=== PATIENT | male | born 1945 | race Caucasian/White ===

== ENCOUNTER → 2016-09-12 | Outpatient (CLI) | payer OTHER ==
--- NOTE | 2016-09-12 16:08 | DX ---
SACRUM AND COCCYX, 3 views HISTORY: Fall on ice, pain, S39.90 2XA COMPARISON: None FINDINGS: No sacral fracture or malalignment is identified. There is degenerative disk disease at the L5-S1 level. The SI joints are normally aligned. There is no unusual lucency of uncertain clinical s ignificance coursing through the right acetabular region. Impression:1. Negative sacrum 2. Lucency coursing through the medial right acetabulum of uncertain significance, since the patient is walking without difficulty. Results discussed with Dr. Waldrop at 4:07 PM
== END ==
LOC: BMCIMAGING 15:15
PROVIDERS: ATTEND Family Medicine
DX: S39.92XA Unspecified injury of lower back, initial encounter (principal); W00.0XXA Fall on same level due to ice and snow, initial encounter

== ENCOUNTER → 2018-10-02 | Outpatient (CLI) | payer OTHER | LOC: BHFA 13:30 | PROVIDERS: ATTEND Internal Medicine Cardiovascular Disease | DX: I25.10 Atherosclerotic heart disease of native coronary artery without angina pectoris (principal); I10 Essential (primary) hypertension ==

== ENCOUNTER → 2018-11-08 | Outpatient (CLI) | payer OTHER | LOC: FIMAGING 09:41 | PROVIDERS: ATTEND Family Medicine | DX: N13.30 Unspecified hydronephrosis (principal); N32.9 Bladder disorder, unspecified ==

== ENCOUNTER 2018-11-25 23:18 | Emergency (ER) | payer OTHER ==
--- NOTE | 2018-11-26 00:04 | EDPHY ---
H & P Stated Complaint: recent TURP now rectal pain, denies urinary complaints Time Seen by Provider: 11/25/18 23:47 HPI/ROS: Chief Complaint: Pelvis/rectal pain HPI: 73-year-old male who is 5 days status post TURP by Dr. Schroeder. Patient had his catheter removed today. Patient states that with voiding he is having pain in his rectum. Occurs only when he is voiding and trying to push headaches urine. Pain can be severe. Started at 5:00 a.m. This evening. Pain then goes away when he is no longer trying to push. He spoke with his urology team and they instructed him to come in for further evaluation. Also does have a history of diverticulitis. He is able to void is not sure if he is emptying his bladder. Continuing to have hematuria as expected. No fevers or chills. No nausea or vomiting. Last normal bowel movement was yesterday. He did have passed some stool tonight. ROS: 10 systems were reviewed and were negative except those elements noted in the HPI. PMH: BPH, renal insufficiency Social History: No smoking, no alcohol, no recreational drug use Family History: non-contributory Physical Exam: Gen: Awake, Alert, No Distress HEENT: Nose: no rhinorrhea Eyes: PERRLA, EOMI Mouth: Moist mucosa Neck: Supple, no JVD Chest: nontender, lungs clear to auscultation Heart: S1, S2 normal, no murmur Abd: Soft, non-tender, no guarding Back: no CVA tenderness, no midline tenderness Ext: no edema, non-tender Skin: no rash Neuro: CN II-XII intact, Sensation grossly intact, Strength 5/5 in bilateral upper and lower extremities - Personal History Current Tetanus/Diphtheria Vaccine: Yes Current Tetanus Diphtheria and Acellular Pertussis (TDAP): Yes - Medical/Surgical History Hx Asthma: No Hx Chronic Respiratory Disease: No Hx Diabetes: No Hx Cardiac Disease: No Hx Renal Disease: No Hx Cirrhosis: No Hx Alcoholism: No Hx HIV/AIDS: No Hx Splenectomy or Spleen Trauma: No Other PMH: TURP, Dperession, kidney stones - Social History Smoking Status: Never smoked Constitutional: Initial Vital Signs Temperature (C) 37.4 C 11/25/18 23:23 Heart Rate 82 11/25/18 23:23 Respiratory Rate 16 11/25/18 23:23 Blood Pressure 138/80 H 11/25/18 23:23 O2 Sat (%) 95 11/25/18 23:23 O2 Delivery Mode Room Air Allergies/Adverse Reactions: Iodinated Contrast- Oral and IV Dye Allergy (Verified 11/25/18 23:22) Home Medications: Medication Instructions Recorded Bupropion HCl [Wellbutrin Xl] 11/25/18 Hydrocodone-Acetamin 5-325 mg 11/25/18 Lorazepam 2 mg PO 11/25/18 Medical Decision Making - Diagnostics Imaging Results: CT abdomen and pelvis without contrast: Comparison: None Findings: No significant abnormality in the lung bases. Normal gallbladder. No biliary ductal dilatation. No aortic aneurysm. Moderate right-sided hydronephrosis and hydroureter of uncertain etiology. The distal ureter is normal caliber. It is difficult to differentiate the inferior bladder from the remaining prostate gland with asymmetric nodularity in what may be the remaining prostate gland on the right. There is ill-defined soft tissue density and/or fluid in the presacral and perirectal soft tissues. Mildly distended urinary bladder with surrounding fat stranding and small amount of air in the bladder. The appendix is not identified. No bowel obstruction or free air. The solid organs are otherwise unremarkable within the limits of a noncontrast study. Impression: Indeterminate fluid and fat stranding in the presacral and perirectal soft tissues which could be ill-defined hematoma and/or edema. Nodularity and irregularity of the prostate gland and bladder base may be benign related to recent surgery. Moderate right-sided hydronephrosis and hydroureter. There is no obstructing calculus identified. This is of uncertain etiology. ELECTRONICALLY SIGNED BY: Jad Verduzco MD Nov 26, 2018 1:14:44 AM MDT ED Course/Re-evaluation: CT scan results noted. Patient has a postvoid residual 680 mL. I have discussed with Dr. Doe, urology. He is recommending replacing a Cortez catheter. Patient to follow up with Dr. Slade tomorrow. - Data Points Laboratory Results: Laboratory Results 11/26/18 00:14 11/26/18 00:14 11/26/18 11/26/18 00:14 00:14 WBC 9.79 10^3/uL H 10^3/uL (3.80-9.50) RBC 3.68 10^6/uL L 10^6/uL (4.40-6.38) Hgb 12.2 g/dL L g/dL (13.7-17.5) Hct 35.0 % L % (40.0-51.0) MCV 95.1 fL fL (81.5-99.8) MCH 33.2 pg pg (27.9-34.1) MCHC 34.9 g/dL g/dL (32.4-36.7) RDW 13.2 % % (11.5-15.2) Plt Count 235 10^3/uL 10^3/uL (150-400) MPV 9.5 fL fL (8.7-11.7) Neut % (Auto) 73.9 % % (39.3-74.2) Lymph % (Auto) 16.5 % % (15.0-45.0) [place] % (Auto) 7.8 % % (4.5-13.0) Eos % (Auto) 1.1 % % (0.6-7.6) Baso % (Auto) 0.3 % % (0.3-1.7) Nucleat RBC Rel Count 0.0 % % (0.0-0.2) Absolute Neuts (auto) 7.23 10^3/uL H 10^3/uL (1.70-6.50) Absolute Lymphs (auto) 1.62 10^3/uL 10^3/uL (1.00-3.00) Absolute Monos (auto) 0.76 10^3/uL 10^3/uL (0.30-0.80) Absolute Eos (auto) 0.11 10^3/uL 10^3/uL (0.03-0.40) Absolute Basos (auto) 0.03 10^3/uL 10^3/uL (0.02-0.10) Absolute Nucleated RBC 0.00 10^3/uL 10^3/uL (0-0.01) Immature Gran % 0.4 % % (0.0-1.1) Immature Gran # 0.04 10^3/uL 10^3/uL (0.00-0.10) Sodium 135 mEq/L mEq/L (135-145) Potassium 4.0 mEq/L mEq/L (3.5-5.2) Chloride 105 mEq/L mEq/L (97-110) Carbon Dioxide 22 mEq/l mEq/l (22-31) Anion Gap 8 mEq/L mEq/L (6-14) BUN 16 mg/dL mg/dL (7-23) Creatinine 1.7 mg/dL H mg/dL (0.7-1.3) Estimated GFR 40 Glucose 114 mg/dL H mg/dL (70-100) Calcium 9.4 mg/dL mg/dL (8.5-10.4) Medications Given: Discontinued Medications Lorazepam (Ativan Injection) 0.5 mg IVP EDNOW ONE Stop: 11/26/18 00:40 Last Admin: 11/26/18 01:02 Dose: 0.5 mg Departure - Departure Disposition: Home, Routine, Self-Care Clinical Impression: Urinary retention, Postoperative pain Condition: Good Instructions: Urinary Retention in Men (ED), Cortez Catheter Placement and Care (ED) Additional Instructions: Follow up with your urologist today. Return emergency department for increasing pain, fevers or chills, nausea vomiting, or any other concerns. Referrals: Norma Rudolph MD [Primary Care Provider] - As per Instructions Mohit Slade MD [Medical Doctor] - As per Instructions
[2018-11-26] MEDS ORDERED: LORazepam 2 MG/ML INJ IVP ONE (00:39)
[2018-11-26 00:42] LABS: PLATELET COUNT 235 10^3/uL (150-400)
[2018-11-26] MEDS ORDERED: LIDOCAINE 2% JELLY 20 ML (UROJECT) ONE (02:21)
[2018-11-26] MEDS ORDERED: HYDROCODONE/APAP 5/325 TAB PO ONE (02:38)
[2018-11-26] MEDS ORDERED: LIDOCAINE 2% JELLY 20 ML (UROJECT) UR ONE (03:14)
[2018-11-26 03:35] VITALS: BP 143/76
== END 2018-11-26 03:36 | disposition home or self-care (01) ==
PROC: 0T9B70Z Drainage of Bladder with Drainage Device, Via Natural or Artificial Opening (ICD-10-PCS; principal; 2018-11-25)
DX: R33.9 Retention of urine, unspecified (principal); G89.18 Other acute postprocedural pain; N40.0 Benign prostatic hyperplasia without lower urinary tract symptoms; N13.30 Unspecified hydronephrosis; N18.9 Chronic kidney disease, unspecified; F32.9 Major depressive disorder, single episode, unspecified; Z87.442 Personal history of urinary calculi; Z98.890 Other specified postprocedural states
CPT/HCPCS: 51702; 74176; 96374; 99285; J2060

== ENCOUNTER 2018-11-26 19:23 | Emergency (ER) | payer OTHER ==
[2018-11-26] MEDS ORDERED: NS 1,000 ML IV ONE (20:10)
--- NOTE | 2018-11-26 20:12 | EDPHY ---
H & P Stated Complaint: fever after a miles was placed yesterday-turp last week Time Seen by Provider: 11/26/18 20:06 HPI/ROS: CHIEF COMPLAINT: Fever HISTORY OF PRESENT ILLNESS: The patient presents the ED for evaluation of fever. The patient is status post TURP. The patient was seen in the emergency department last night and diagnosed with urinary retention. Miles catheter was placed at that point time. The patient reported fever tonight at home of 99 degrees. The patient denies any rigors or chills. The patient denies any dysuria. He denies cough or congestion. He denies abdominal pain, vomiting or diarrhea. The patient has not been on antibiotics following his procedure. REVIEW OF SYSTEMS: A comprehensive 10 point review of systems is otherwise negative aside from elements mentioned in the history of present illness. Source: Patient Exam Limitations: No limitations - Personal History Current Tetanus/Diphtheria Vaccine: Yes Current Tetanus Diphtheria and Acellular Pertussis (TDAP): Yes - Medical/Surgical History Hx Asthma: No Hx Chronic Respiratory Disease: No Hx Diabetes: No Hx Cardiac Disease: No Hx Renal Disease: No Hx Cirrhosis: No Hx Alcoholism: No Hx HIV/AIDS: No Hx Splenectomy or Spleen Trauma: No Other PMH: TURP, Dperession, kidney stones - Social History Smoking Status: Never smoked - Physical Exam Exam: General Appearance: Alert, no distress Eyes: Pupils equal and round no pallor or injection ENT, Mouth: Mucous membranes moist Respiratory: There are no retractions, lungs are clear to auscultation Cardiovascular: Regular rate and rhythm Gastrointestinal: Abdomen is soft and nontender, no masses, bowel sounds normal Neurological: 5/5 strength noted all 4 extremities : Miles catheter in place Skin: Warm and dry, no rashes Musculoskeletal: Neck is supple nontender Extremities: symmetrical, full range of motion Constitutional: Initial Vital Signs Temperature (C) 37.7 C 11/26/18 19:28 Heart Rate 88 11/26/18 19:28 Respiratory Rate 16 11/26/18 19:28 Blood Pressure 134/88 H 11/26/18 19:28 O2 Sat (%) 96 11/26/18 19:28 O2 Delivery Mode Room Air Allergies/Adverse Reactions: Iodinated Contrast- Oral and IV Dye Allergy (Verified 11/26/18 19:30) Home Medications: Medication Instructions Recorded Bupropion HCl [Wellbutrin Xl] 11/25/18 levOFLOXACIN [levAQUIN (*)] 750 mg PO DAILY #7 tab 11/26/18 Medical Decision Making ED Course/Re-evaluation: I reviewed the patient's CT scan performed last night. The patient is nontoxic well-appearing. He has no evidence septic physiology. Blood cultures have been obtained. The patient is given ceftriaxone. He will be discharged home with Levaquin. He is noted to have pyuria. The patient has been instructed to return to the ED for markedly worsening symptoms or other concerns. The patient is noted to have pyuria and hematuria. The patient has no clinical evidence of pyelonephritis. The patient does have a follow-up appointment with Dr. Slade on . Blood in urine cultures have been obtained. The patient will be discharged home with customary aftercare instructions and return precautions. I did notify the on-call urologist, Dr. Johnson, of the patient's workup in the emergency department. Patient's creatinine is noted to be at baseline at 1.6. Differential Diagnosis: Differential diagnosis considered includes bacteremia, urinary tract infection, pyelonephritis, abscess, cellulitis - Data Points Laboratory Results: Laboratory Results 11/26/18 20:20 11/26/18 20:20 11/26/18 11/26/18 11/26/18 20:35 20:20 20:20 WBC 8.39 10^3/uL 10^3/uL (3.80-9.50) RBC 3.61 10^6/uL L 10^6/uL (4.40-6.38) Hgb 11.9 g/dL L g/dL (13.7-17.5) Hct 33.9 % L % (40.0-51.0) MCV 93.9 fL fL (81.5-99.8) MCH 33.0 pg pg (27.9-34.1) MCHC 35.1 g/dL g/dL (32.4-36.7) RDW 13.6 % % (11.5-15.2) Plt Count 214 10^3/uL 10^3/uL (150-400) MPV 9.6 fL fL (8.7-11.7) Neut % (Auto) 68.5 % % (39.3-74.2) Lymph % (Auto) 20.4 % % (15.0-45.0) [place] % (Auto) 9.5 % % (4.5-13.0) Eos % (Auto) 0.8 % % (0.6-7.6) Baso % (Auto) 0.4 % % (0.3-1.7) Nucleat RBC Rel Count 0.0 % % (0.0-0.2) Absolute Neuts (auto) 5.75 10^3/uL 10^3/uL (1.70-6.50) Absolute Lymphs (auto) 1.71 10^3/uL 10^3/uL (1.00-3.00) Absolute Monos (auto) 0.80 10^3/uL 10^3/uL (0.30-0.80) Absolute Eos (auto) 0.07 10^3/uL 10^3/uL (0.03-0.40) Absolute Basos (auto) 0.03 10^3/uL 10^3/uL (0.02-0.10) Absolute Nucleated RBC 0.00 10^3/uL 10^3/uL (0-0.01) Immature Gran % 0.4 % % (0.0-1.1) Immature Gran # 0.03 10^3/uL 10^3/uL (0.00-0.10) Sodium 133 mEq/L L mEq/L (135-145) Potassium 4.0 mEq/L mEq/L (3.5-5.2) Chloride 104 mEq/L mEq/L (97-110) Carbon Dioxide 21 mEq/l L mEq/l (22-31) Anion Gap 8 mEq/L mEq/L (6-14) BUN 14 mg/dL mg/dL (7-23) Creatinine 1.6 mg/dL H mg/dL (0.7-1.3) Estimated GFR 43 Glucose 101 mg/dL H mg/dL (70-100) Calcium 9.2 mg/dL mg/dL (8.5-10.4) Urine Color RED Urine Appearance MODERATELY TURBID Urine pH 6.0 (5.0-7.5) Ur Specific [place] 1.015 (1.002-1.030) Urine Protein 3+ H (NEGATIVE) Urine Ketones NEGATIVE (NEGATIVE) Urine Blood 3+ H (NEGATIVE) Urine Nitrate NEGATIVE (NEGATIVE) Urine Bilirubin NEGATIVE (NEGATIVE) Urine Urobilinogen NEGATIVE EU EU (0.2-1.0) Ur Leukocyte Esterase 3+ H (NEGATIVE) Urine RBC 50-182 /hpf H /hpf (0-3) Urine WBC 50-182 /hpf H /hpf (0-3) Ur Epithelial Cells TRACE /lpf /lpf (NONE-1+) Urine Bacteria 1+ /hpf H /hpf (NONE SEEN) Urine Mucus 1+ /lpf /lpf (NONE-1+) Urine Glucose NEGATIVE (NEGATIVE) Medications Given: Discontinued Medications Sodium Chloride (Ns) 1,000 mls @ 0 mls/hr IV ONCE ONE; Wide Open PRN Reason: Protocol Stop: 11/26/18 20:11 Last Admin: 11/26/18 20:13 Dose: 1,000 mls Ceftriaxone Sodium/Dextrose (Rocephin 1 Gm (Premix)) 50 mls @ 100 mls/hr IV EDNOW ONE PRN Reason: Protocol Stop: 11/26/18 20:57 Last Admin: 11/26/18 20:36 Dose: 50 mls Departure - Departure Disposition: Home, Routine, Self-Care Clinical Impression: Urinary retention Condition: Good Instructions: Fever in Adults (ED) Additional Instructions: 1. Take antibiotics as prescribed for next 7 days. 2. Please contact the emergency department tomorrow at to check the results of your blood cultures. 3. Please follow up with your urologist as scheduled on . 5. Please return to the ED for any acute pain, markedly worsening fever, lightheadedness, shaking chills or other concerns. Referrals: Norma Rudolph MD [Primary Care Provider] - As per Instructions Mohit Slade MD [Medical Doctor] - As per Instructions Prescriptions: levOFLOXACIN [levAQUIN (*)] 750 mg PO DAILY #7 tab
[2018-11-26 20:32] LABS: PLATELET COUNT 214 10^3/uL (150-400)
[2018-11-26 21:16] VITALS: BP 130/84
== END 2018-11-26 21:15 | disposition home or self-care (01) ==
DX: R33.9 Retention of urine, unspecified (principal); E86.9 Volume depletion, unspecified; F32.9 Major depressive disorder, single episode, unspecified; Z87.442 Personal history of urinary calculi; Z98.890 Other specified postprocedural states
CPT/HCPCS: 96365; 99284; J0696